=== PATIENT | female | born 1945 | race Caucasian/White ===

== ENCOUNTER 2016-11-20 19:38 | Inpatient (IN) | payer MEDICARE ==
[~2016-11-20] VITALS: Ht 162.6 cm; Wt 52.6 kg
[~2016-11-20 19:38] MED LIST: LAMO100 PO; PRIM50 PO; SERT-129 PO; SERT-132 PO; SIMV40TA PO
[2016-11-20 19:40] VITALS: BP 107/51; PULSE 74; RESP 14; TEMP 99.5; O2SAT 100
[2016-11-20] MEDS ORDERED: SODIUM CHLOR 0.9% 1000 ML INJ 1,000 ML IV SCH (20:43)
[2016-11-20] MEDS ORDERED: PANTOPRAZOLE INJ 80 MG in SODIUM CHLORIDE 0.9% INJ 100 ML IV SCH (20:45)
[2016-11-20] MEDS ORDERED: DENO60P SQ (20:45)
[2016-11-20] MEDS ORDERED: PANTOPRAZOLE INJ 80 MG in SODIUM CHLORIDE 0.9% INJ 35 ML IV ONE (20:45)
[2016-11-20] MEDS ORDERED: SODIUM CHLORIDE 0.9% FLUSH 10 ML FLUSH IVF PRN (20:45)
[2016-11-20] MEDS ORDERED: ONDANSETRON HCL 4 MG/2 ML VIAL IVP ONE (20:45)
[2016-11-20 20:53] VITALS: RESP 18
[2016-11-20 21:01] LABS: AUTOMATED NEUTROPHIL # 6.2 TH/MM3 (1.8-7.7); BASOPHIL % 0.6 % (0.0-2.0); EOSINOPHIL % 0.1 % (0.0-4.0); HEMATOCRIT 27.2 % (35.0-46.0); HEMO FLAGS DIFF FINAL; LYMPH % 8.3 % (9.0-44.0); LYMPHOCYTE # 0.6 TH/MM3 (1.0-4.8); MEAN CELL VOLUME 93.4 FL (80.0-100.0); MEAN CORPUSCULAR HEMOGLOBIN 31.5 PG (27.0-34.0); MEAN CORPUSCULAR HGB CONC 33.8 % (32.0-36.0); MONO % 6.6 % (0.0-8.0); NEUT % 84.4 % (16.0-70.0); PLATELET COUNT 214 TH/MM3 (150-450); RED BLOOD COUNT 2.91 MIL/MM3 (4.00-5.30); RED CELL DISTRIBUTION WIDTH 14.3 % (11.6-17.2); WHITE BLOOD COUNT 7.3 TH/MM3 (4.0-11.0)
[2016-11-20 21:11] LABS: INTERNATIONAL NORMALIZED RATIO 1.1 RATIO; PROTHROMBIN TIME - PATIENT 12.4 SEC (9.8-11.6)
[2016-11-20 21:17] LABS: ANION GAP 7 MEQ/L (5-15); AST (GOT) 24 U/L (15-37); BICARBONATE 31.4 MEQ/L (21.0-32.0); BLOOD UREA NITROGEN 45 MG/DL (7-18); CHLORIDE 103 MEQ/L (98-107); GLOMERULAR FILTRATION RATE 83 ML/MIN (>89); POTASSIUM 4.5 MEQ/L (3.5-5.1); SODIUM (NA) 141 MEQ/L (136-145)
[2016-11-20 21:22] LABS: ALKALINE PHOSPHATASE 100 U/L (45-117); ALT (GPT) 23 U/L (10-53); TOTAL BILIRUBIN ADULT 0.2 MG/DL (0.2-1.0)
[2016-11-20] MEDS ORDERED: OCTREOTIDE INJ 50 MCG/ML AMP IV PUSH STA (21:29)
[2016-11-20] MEDS ORDERED: SODIUM CHLOR 0.9% 250 ML INJ 250 ML IV ONE (21:30)
[2016-11-20] MEDS ORDERED: OCTREOTIDE INJ 500 MCG in SODIUM CHLORID 0.9% 500 ML INJ 500 ML IV ONE (21:30)
--- NOTE | 2016-11-20 21:45 | RADRPT ---
EXAM DATE/TIME: 11/20/2016 21:05 [facility] COMPARISON: No previous studies available for comparison. INDICATIONS : Patient complains of vomiting and weakness. MEDICAL HISTORY : None. SURGICAL HISTORY : None. ENCOUNTER: Initial ACUITY: 1 day PAIN SCORE: 0/10 LOCATION: chest FINDINGS: The cardiac silhouette is normal in transverse diameter. The lungs are free of acute parenchymal opac ity. No effusions are identified. There is prominence of the aortic knob is with calcification charac teristic of atherosclerotic vascular disease. CONCLUSION: 1. No acute cardiopulmonary disease. Chris Flores MD on November 20, 2016 at 21:44 Board Certified Radiologist. This report was verified electronically.
[2016-11-20 22:03] VITALS: BP 100/64; PULSE 68; RESP 18; O2SAT 99
[2016-11-20] MEDS ORDERED: IOHEXOL 350 MG/ML 10 ML VIAL (for RAD DIAG) IV ONE (22:22)
--- NOTE | 2016-11-20 22:35 | RADRPT ---
EXAM DATE/TIME: 11/20/2016 22:04 [facility] COMPARISON: CT ABDOMEN & PELVIS W CONTRAST, June 17, 2010, 17:09. INDICATIONS : Abdomen pain with hematemesis. IV CONTRAST: 75 cc Omnipaque 350 (iohexol) IV ORAL CONTRAST: No oral contrast ingested. RADIATION DOSE: 4.96 CTDIvol (mGy) MEDICAL HISTORY : Colitis SURGICAL HISTORY : Tubal ligation. ENCOUNTER: Initial ACUITY: 1 day PAIN SCALE: 5/10 LOCATION: Bilateral abdomen TECHNIQUE: Volumetric scanning of the abdomen and pelvis was performed. Using automated exposure control and ad justment of the mA and/or kV according to patient size, radiation dose was kept as low as reasonably achievable to obtain optimal diagnostic quality images. FINDINGS: Examination of the lung bases demonstrates no abnormality. No pleural fluid is identified. No pulmona ry nodules are present. The liver and spleen are free of focal defects. The gallbladder and pancreas demonstrate no abnormality. The adrenal glands are normal. The kidneys demonstrate no evidence of jamari id renal mass or hydronephrosis. No free fluid or abdominal masses are identified. No para-aortic lisa nopathy is seen. Examination of the pelvis demonstrates no evidence of free fluid or pelvic mass. No abnormally enlarg ed inguinal or retroperitoneal lymph nodes are present. The bladder is unremarkable. There is diverti culosis without evidence of diverticulitis. CONCLUSION: 1. No evidence of acute abdominal or pelvic process. No masses are identified. 2. Diverticulosis without evidence of diverticulitis. Chris Flores MD on November 20, 2016 at 22:27 Board Certified Radiologist. This report was verified electronically.
--- NOTE | 2016-11-20 23:18 | HHI.HP ---
HPI Service Critical Care Medicine Primary Care Physician Isela Patel MD Admission Diagnosis GI bleed Diagnosis: Travel History International Travel<30 Days: No Contact w/Intl Traveler <30 Da: No Traveled to Known Affected Are: No History of Present Illness 71 year old very pleasant female who comes in due to nausea, vomiting, and passing bright red blood per rectum. She says that this afternoon she vomited several times and there was blood in the vomit. She then had two episodes of diarrhea at home. The first was black and tarry, the second was blood clots. She had another bloody bowel movement in the waiting room. She says she has some pain to her abdomen, in the epigastric area as well as the right lower quadrant. She has been taking a lot of Ibuprofen lately for toothaches. She has no history of liver disease. Review of Systems Constitutional: COMPLAINS OF: Fatigue, Dizziness, DENIES: Diaphoretic episodes , Fever, Weight gain, Weight loss, Chills, Change in appetite, Night Sweats Endocrine: DENIES: Abnorml menstrual pattern, Heat/cold intolerance, Polydipsia , Polyuria, Polyphagia Eyes: DENIES: Blurred vision, Diplopia, Eye inflammation, Eye pain, Vision loss , Photosensitivity, Double Vision Ears, nose, mouth, throat: DENIES: Tinnitus, Hearing loss, Vertigo, Nasal discharge, Oral lesions, Throat pain, Hoarseness, Ear Pain, Running Nose, Epistaxis, Sinus Pain, Toothache, Odynophagia Respiratory: DENIES: Apneas, Cough, Snoring, Wheezing, Hemoptysis, Sputum production, Shortness of breath Cardiovascular: DENIES: Chest pain, Palpitations, Syncope, Dyspnea on Exertion , PND, Lower Extremity Edema, Orthopnea, Claudication Gastrointestinal: COMPLAINS OF: Abdominal pain, Black stools, Bloody stools, Nausea, Vomiting, DENIES: Constipation, Diarrhea, Difficulty Swallowing, Anorexia Genitourinary: DENIES: Abnormal vaginal bleeding, Dysmenorrhea, Dyspareunia, Sexual dysfunction, Urinary frequency, Urinary incontinence, Urgency, Hematuria , Dysuria, Nocturia, Vaginal discharge Musculoskeletal: DENIES: Joint pain, Muscle aches, Stiffness, Joint Swelling, Back pain, Neck pain Integumentary: DENIES: Abnormal pigmentation, Pruritus, Rash, Nail changes, Breast masses, Breast skin changes, Nipple discharge Hematologic/lymphatic: DENIES: Bruising, Lymphadenopathy Immunologic/allergic: DENIES: Eczema, Urticaria Neurologic: DENIES: Abnormal gait, Headache, Localized weakness, Paresthesias, Seizures, Speech Problems, Tremor, Poor Balance Psychiatric: DENIES: Anxiety, Confusion, Mood changes, Depression, Hallucinations, Agitation, Suicidal Ideation, Homicidal Ideation, Delusions Past Family Social History Allergies: Coded Allergies: Tegretol (Verified Allergy, Severe, 11/20/16) Adhesives (Verified Allergy, Mild, 11/20/16) Past Medical History Anxiety Colitis Seizure disorder Past Surgical History Tubal Ligation Right temporal lobectomy for seizure disorder Reported Medications Reported Meds & Active Scripts Active Sertraline (Sertraline HCl) 100 Mg Tab 100 Mg PO DAILY Sertraline (Sertraline HCl) 50 Mg Tab 50 Mg PO DAILY Reported Prolia Inj (Denosumab) 60 Mg/Ml Inj 60 Mg SQ Q180D Mysoline (Primidone) 50 Mg Tab 250 Mg PO TID Lamictal (Lamotrigine) 100 Mg Tab 100 Mg PO TID Active Ordered Medications Current Medications Medications (Trade) Dose Ordered Sig/Willie Route PRN Reason Start Time Stop Time Status Last Admin Dose Admin Sodium Chloride (NS 250 ml Inj) 250 ml @ 15 mls/hr ONCE ONCE IV 11/20/16 21:30 11/21/16 14:09 11/21/16 00:38 Lamotrigine (LaMICtal) 100 mg TID PO 11/21/16 09:00 Primidone (Mysoline) 250 mg TID PO 11/21/16 09:00 Sertraline HCl (Zoloft) 50 mg DAILY PO 11/21/16 09:00 Sertraline HCl 100 mg 100 mg DAILY PO 11/21/16 09:00 Sodium Chloride (NS 1000 ml Inj) 1,000 ml @ 124 mls/hr Q8H4M IV 11/20/16 23:31 11/21/16 00:38 Sodium Chloride (NS Flush) 2 ml UNSCH PRN .XX FLUSH AFTER USING IV ACCESS 11/20/16 23:45 Sodium Chloride (NS Flush) 2 ml BID .XX 11/21/16 09:00 Acetaminophen (Tylenol) 650 mg Q6H PRN PO PAIN 1-5 AND/OR FEVER >101F 11/20/16 23:45 Morphine Sulfate (Morphine Inj) 2 mg Q2H PRN IV PAIN SCALE 6 TO 10 11/20/16 23:45 Pantoprazole Sodium (Protonix Inj) 40 mg Q12H IV 11/21/16 00:00 11/21/16 00:39 Ondansetron HCl (Zofran Inj) 4 mg Q6H PRN IV NAUSEA OR VOMITING 11/20/16 23:45 Metoclopramide HCl (Reglan Inj) 10 mg Q6H PRN IV NAUSEA OR VOMITING 11/20/16 23:45 Temazepam (Restoril) 15 mg HS PRN PO INSOMNIA 11/20/16 23:45 Miscellaneous Information 1 Q361D XX 11/20/16 23:45 Chlorhexidine Gluconate (Chlorhexidine 2% Cloth) 3 pack Taper DAILY@04 TOP 11/21/16 04:00 11/17/17 03:59 Chlorhexidine Gluconate (Chlorhexidine 2% Cloth) 3 pack UNSCH PRN TOP HYGIENIC CARE 11/20/16 23:45 Family History Noncontributory Social History Negative 3 Physical Exam Vital Signs Vital Signs Date Time Temp Pulse Resp B/P Pulse Ox O2 Delivery O2 Flow Rate FiO2 11/20/16 22:03 68 18 100/64 99 Room Air 11/20/16 20:53 18 11/20/16 19:40 99.5 74 14 107/51 100 Room Air Physical Exam GENERAL: Well-nourished, well-developed patient. Repeat pleasant elderly woman SKIN: Warm and dry. HEAD: Normocephalic. EYES: No scleral icterus. No injection or drainage. NECK: Supple, trachea midline. No JVD or lymphadenopathy. CARDIOVASCULAR: Regular rate and rhythm without murmurs, gallops, or rubs. RESPIRATORY: Breath sounds equal bilaterally. No accessory muscle use. GASTROINTESTINAL: Abdomen soft, non-tender, nondistended. MUSCULOSKELETAL: No cyanosis, or edema. BACK: Nontender without obvious deformity. No CVA tenderness. EXTREMITIES: No clubbing cyanosis or edema Laboratory Laboratory Tests Test 11/20/16 11/20/16 11/20/16 20:45 21:29 22:41 White Blood Count 7.3 Red Blood Count 2.91 Hemoglobin 9.2 Hematocrit 27.2 Mean Corpuscular Volume 93.4 Mean Corpuscular Hemoglobin 31.5 Mean Corpuscular Hemoglobin 33.8 Concent Red Cell Distribution Width 14.3 Platelet Count 214 Mean Platelet Volume 8.9 Neutrophils (%) (Auto) 84.4 Lymphocytes (%) (Auto) 8.3 Monocytes (%) (Auto) 6.6 Eosinophils (%) (Auto) 0.1 Basophils (%) (Auto) 0.6 Neutrophils # (Auto) 6.2 Lymphocytes # (Auto) 0.6 Monocytes # (Auto) 0.5 Eosinophils # (Auto) 0.0 Basophils # (Auto) 0.0 CBC Comment DIFF FINAL Differential Comment Prothrombin Time 12.4 Prothromb Time International 1.1 Ratio Activated Partial 24.0 Thromboplast Time Sodium Level 141 Potassium Level 4.5 Chloride Level 103 Carbon Dioxide Level 31.4 Anion Gap 7 Blood Urea Nitrogen 45 Creatinine 0.70 Estimat Glomerular Filtration 83 Rate Random Glucose 112 Calcium Level 7.9 Total Bilirubin 0.2 Aspartate Amino Transf 24 (AST/SGOT) Alanine Aminotransferase 23 (ALT/SGPT) Alkaline Phosphatase 100 Troponin I LESS THAN 0.02 Total Protein 5.7 Albumin 3.4 Blood Type O POSITIVE O POSITIVE Antibody Screen NEGATIVE Blood Bank Comment Crossmatch Leukocyte-Reduced Red Blood Cells Result Diagram: 11/20/16204411/20/162044 Assessment and Plan Assessment and Plan GI bleed - No history of liver disease - Most probably peptic ulcer due to NSAIDs overuse - IV Protonix every 12 - GI consult - Series of H&H Seizure disorder - Lamictal - Primidone Anemia - Due to above - Series of H&H - Transfuse for hemoglobin less than 7 Anxiety - Zoloft DVT GI prophylaxis - No pharmacological DVT prophylaxis due to active GI bleed - Teds SCDs - Protonix IV twice a day Critical Care: The total critical care time was 35 minutes. Time to perform other separately billable procedures was not included in the critical care time. Jasmeet Preston MD November 20, 2016 23:18
--- NOTE | 2016-11-20 23:40 | PD ---
HPI Chief Complaint: GI Complaint Time Seen by Provider: 20:43 Travel History International Travel<30 days: No Contact w/Intl Traveler<30days: No Traveled to known affect area: No History of Present Illness HPI Patient is a 71 year old female who comes in due to nausea, vomiting, and GI bleed. She says that this afternoon she vomited several times and there was blood in the vomit. She then had two episodes of diarrhea at home. The first was black and tarry, the second was blood clots. She had another bloody bowel movement in the waiting room. She says she has some pain to her abdomen, in the epigastric area as well as the RLQ. She denies dysuria or chest pain or SOB. She has been taking a lot of Ibuprofen lately for toothaches. PFSH Past Medical History Anxiety: Yes Gastrointestinal Disorders: Yes (COLITIS) Neurologic: Yes Seizures: Yes Tetanus Vaccination: Unknown Menopausal: Yes Tubal Ligation: Yes Past Surgical History Neurologic Surgery: Yes (RIGHT TEMPORAL LOBECTOMY FOR SEIZURES) Social History Alcohol Use: No Tobacco Use: No Substance Use: No Allergies-Medications (Allergen,Severity, Reaction): Coded Allergies: Tegretol (Verified Allergy, Severe, 11/20/16) Adhesives (Verified Allergy, Mild, 11/20/16) Reported Meds & Prescriptions Reported Meds & Active Scripts Active Sertraline (Sertraline HCl) 100 Mg Tab 100 Mg PO DAILY Sertraline (Sertraline HCl) 50 Mg Tab 50 Mg PO DAILY Reported Prolia Inj (Denosumab) 60 Mg/Ml Inj 60 Mg SQ Q180D Mysoline (Primidone) 50 Mg Tab 250 Mg PO TID Lamictal (Lamotrigine) 100 Mg Tab 100 Mg PO TID Review of Systems Except as stated in HPI: all other systems reviewed are Neg General / Constitutional: No: Fever, Chills Eyes: No: Blurred Vision HENT: No: Headaches Cardiovascular: No: Chest Pain or Discomfort Respiratory: No: Shortness of Breath Gastrointestinal: Positive: Nausea, Vomiting, Abdominal Pain, Hematemesis, Hematochezia Genitourinary: No: Dysuria Skin: No Rash, No Change in Pigmentation Neurologic: Positive: Weakness Physical Exam Narrative GENERAL: Awake and alert, in no acute distress. SKIN: Focused skin assessment warm/dry. HEAD: Atraumatic. Normocephalic. EYES: Pupils equal and round. No scleral icterus. No conjunctival pallor. ENT: Mucous membranes pink and moist. NECK: Trachea midline. No JVD. CARDIOVASCULAR: Regular rate and rhythm. No murmur appreciated. RESPIRATORY: No accessory muscle use. Clear to auscultation. Breath sounds equal bilaterally. GASTROINTESTINAL: Abdomen soft, nondistended. Mild tenderness to RLQ. No rebound guarding. MUSCULOSKELETAL: No obvious deformities. No clubbing. No cyanosis. No edema. NEUROLOGICAL: Awake and alert. No obvious cranial nerve deficits. Motor grossly within normal limits. Normal speech. PSYCHIATRIC: Appropriate mood and affect; insight and judgment normal. Data Data Last Documented VS Vital Signs Date Time Temp Pulse Resp B/P Pulse Ox O2 Delivery O2 Flow Rate FiO2 11/20/16 22:03 68 18 100/64 99 Room Air 11/20/16 19:40 99.5 Orders Complete Blood Count With Diff (11/20/16 20:43) Comprehensive Metabolic Panel (11/20/16 20:43) Prothrombin Time / Inr (Pt) (11/20/16 20:43) Act Partial Throm Time (Ptt) (11/20/16 20:43) Urinalysis - C+S If Indicated (11/20/16 20:43) Ua Includes Microscopic (11/20/16 20:43) Type And Screen (11/20/16 20:43) Ecg Monitoring (11/20/16 20:43) Iv Access Insert/Monitor (11/20/16 20:43) Oximetry (11/20/16 20:43) Ondansetron Inj (Zofran Inj) (11/20/16 20:45) Sodium Chlor 0.9% 1000 Ml Inj (Ns 1000 M (11/20/16 20:43) Sodium Chloride 0.9% Flush (Ns Flush) (11/20/16 20:45) Pantoprazole Inj (Protonix Inj) (11/20/16 20:45) Pantoprazole Inj (Protonix Inj) (11/20/16 20:45) Troponin I (11/20/16 20:43) Ct Abd/Pel W Iv Contrast(Rout) (11/20/16 ) Electrocardiogram (11/20/16 ) Chest, Single Ap (11/20/16 ) Red Blood Cells (Rbc) (11/20/16 21:29) Blood Product Administration .UPON TRANSFUSION (11/20/16 21:29) Sodium Chlor 0.9% 250 Ml Inj (Ns 250 Ml (11/20/16 21:30) Octreotide Inj (Sandostatin Inj) (11/20/16 21:29) Octreotide Inj (Sandostatin Inj) (11/20/16 21:30) Iohexol 350 Inj (Omnipaque 350 Inj) (11/20/16 22:22) Admit Order (Ed Use Only) (11/20/16 ) Labs Laboratory Tests Test 11/20/16 11/20/16 20:45 21:29 White Blood Count 7.3 TH/MM3 Red Blood Count 2.91 MIL/MM3 Hemoglobin 9.2 GM/DL Hematocrit 27.2 % Mean Corpuscular Volume 93.4 FL Mean Corpuscular Hemoglobin 31.5 PG Mean Corpuscular Hemoglobin 33.8 % Concent Red Cell Distribution Width 14.3 % Platelet Count 214 TH/MM3 Mean Platelet Volume 8.9 FL Neutrophils (%) (Auto) 84.4 % Lymphocytes (%) (Auto) 8.3 % Monocytes (%) (Auto) 6.6 % Eosinophils (%) (Auto) 0.1 % Basophils (%) (Auto) 0.6 % Neutrophils # (Auto) 6.2 TH/MM3 Lymphocytes # (Auto) 0.6 TH/MM3 Monocytes # (Auto) 0.5 TH/MM3 Eosinophils # (Auto) 0.0 TH/MM3 Basophils # (Auto) 0.0 TH/MM3 CBC Comment DIFF FINAL Differential Comment Prothrombin Time 12.4 SEC Prothromb Time International 1.1 RATIO Ratio Activated Partial 24.0 SEC Thromboplast Time Sodium Level 141 MEQ/L Potassium Level 4.5 MEQ/L Chloride Level 103 MEQ/L Carbon Dioxide Level 31.4 MEQ/L Anion Gap 7 MEQ/L Blood Urea Nitrogen 45 MG/DL Creatinine 0.70 MG/DL Estimat Glomerular Filtration 83 ML/MIN Rate Random Glucose 112 MG/DL Calcium Level 7.9 MG/DL Total Bilirubin 0.2 MG/DL Aspartate Amino Transf 24 U/L (AST/SGOT) Alanine Aminotransferase 23 U/L (ALT/SGPT) Alkaline Phosphatase 100 U/L Troponin I LESS THAN 0.02 NG/ML Total Protein 5.7 GM/DL Albumin 3.4 GM/DL Blood Type O POSITIVE Antibody Screen NEGATIVE Blood Bank Comment Crossmatch Leukocyte-Reduced Red Blood Cells MDM Medical Decision Making Medical Screen Exam Complete: Yes Emergency Medical Condition: Yes Differential Diagnosis PUD vs diverticulosis vs diverticulitis vs AVM Narrative Course Patient is a 71 year old female who comes in complaining of nausea with vomiting blood and bloody stools. Exam shows BRBPR. IV established, labs sent, patient connected to the it technical architect. Given IVF and Zofran. Started on protonix drip. Patient went to the bathroom and had a syncopal episode after another blood bowel movement. Her daughter caught her before she hit the floor. She was returned to bed and returned to her baseline. Given 2 units of blood, given Octreotide. GI consulted, will perform scope tomorrow morning. Patient admitted to the ICU. Critical Care Narrative Aggregate critical care time was 35 minutes. Time to perform other separately billable procedures was not included in the critical care time. My time did not include minutes spent treating any other patients simultaneously or on activities that did not directly contribute to the patient's treatment. The services I provided to this patient were to treat and/or prevent clinically significant deterioration that could result in: Serious illness or I provided critical care services requiring my management, as noted below: Chart data review, documentation time, medication orders and management, vital sign assessments/reviewing monitor data, ordering and reviewing lab tests, ordering and interpreting/reviewing x-rays and diagnostic studies, care of the patient and discussion of the patient with the admitting physicians. HemaPrompt Point of Care Internal Pos. & Neg. Controls: Passed Fecal Specimen Occult Blood: Positive Diagnosis Primary Impression: GI bleed Qualified Code: K92.2 - Gastrointestinal hemorrhage, unspecified gastrointestinal hemorrhage type Admitting Information Admitting Physician Requests: Admit Moira Pierre MD November 20, 2016 23:40
[2016-11-20] MEDS ORDERED: ACETAMINOPHEN 325 MG TAB PO PRN (23:45)
[2016-11-20] MEDS ORDERED: METOCLOPRAMIDE HCL 10 MG/2 ML VIAL IV PRN (23:45)
[2016-11-20] MEDS ORDERED: MISCELLANEOUS NURSING INFORMATION XX SCH (23:45)
[2016-11-20] MEDS ORDERED: RESP: ALBUTEROL 2.5 MG/IPRATROPIUM 0.5 MG NEB (PRN) INH (23:45)
[2016-11-20] MEDS ORDERED: CHLORHEXIDINE GLUCONATE 2 % 1 PACK (2 CLOTHS) TOP PRN (23:45)
[2016-11-20] MEDS ORDERED: TEMAZEPAM 15 MG CAP PO PRN (23:45)
[2016-11-20] MEDS ORDERED: SODIUM CHLORIDE 0.9% FLUSH 10 ML FLUSH PRN (23:45)
[2016-11-20] MEDS ORDERED: ONDANSETRON HCL 4 MG/2 ML VIAL IV PRN (23:45)
[2016-11-20 23:47] VITALS: BP 129/69; PULSE 76; RESP 16; O2SAT 95
[2016-11-21] VITALS (27 sets, daily range): BP systolic 113–167; BP diastolic 59–90; PULSE 62–123; RESP 14–24; TEMP 97.8–99.3; O2SAT 92–100
[2016-11-21] MEDS: SODIUM CHLOR 0.9% 1000 ML INJ 1,000 ML IV SCH ×3 (00:38→14:44)
[2016-11-21] MEDS: PANTOPRAZOLE SODIUM 40 MG VIAL IV SCH ×2 (00:39→11:47)
[2016-11-21 00:49] LABS: BACTERIA, URINE RARE /hpf; BLOOD, URINE LARGE (NEG); GLUCOSE,URINE NEG (NEG); KETONE, URINE TRACE mg/dL (NEG); MUCUS URINE FEW /lpf (OCC); NITRITE,URINE NEG (NEG); SQUAMOUS EPITHELIAL CELL URINE 4 /hpf (0-5); TRANSITIONAL EPI CELLS, URINE <1 /hpf; URINE COLOR YELLOW (YELLW/STRAW)
[2016-11-21 00:50] LABS: COMMENT (UR) CULT NOT INDICATED; CULTURE IF INDICATED CULT NOT INDICATED
[2016-11-21 01:17] LABS: HEMATOCRIT 25.7 % (35.0-46.0); REVIEW FLAG FINAL
[2016-11-21] MEDS: CHLORHEXIDINE GLUCONATE 2 % 1 PACK (2 CLOTHS) TOP SCH (05:11)
[2016-11-21] MEDS: MORPHINE SULFATE 4 MG/ML INJ IV PRN ×2 (05:23→14:45)
--- NOTE | 2016-11-21 07:42 | PD.CONS ---
HPI History of Present Illness This is a 71 year old female who presented to the ER with hematemesis and melanotic stool. She has a history of collagenous colitis, but states she has not had any issues with this for quite some time. She last had a colonoscopy in 2011, but does not recall who did this or what they found. She is unsure if she had an endoscopy at that time. She denies any history of peptic ulcer disease. She recently had dental work done and has been taking 2-4 ibuprofen per day. She reports that she was in her normal state of health up until yesterday afternoon. She was feeling tired and went to take a nap. She woke up around 3pm with nausea and vomiting, consisting of reddish colored emesis. She denies any abdominal pain, but states she was very diaphoretic and had the urge to move her bowels. She had a black tarry stool that filled the toilet and when she flushed this, it seemed to have some red blood clots mixed within it. She reports that she was very weak at the time and found herself on the floor, but she is unsure if she actually passed out or was just tired. She denies any heartburn, reflux, abdominal pain, constipation, or diarrhea. She has been more tired than usual for a few days and also reports that she has had a decreased appetite, but denies any obvious weight loss. PFSH Past Medical History Osteoarthritis Irritable bowel syndrome Anxiety Collagenous Colitis Seizure disorder Past Surgical History Tubal ligation Right temporal lobectomy for seizure disorder Colonoscopy Coded Allergies: Tegretol (Verified Allergy, Severe, 11/20/16) Adhesives (Verified Allergy, Mild, 11/20/16) Medications Allergies Coded Allergies Type Severity Reaction Last Updated Verified Tegretol Allergy Severe 11/20/16 Yes Adhesives Allergy Mild 11/20/16 Yes Active Scripts Medications Dose Route/Sig Days Date Category Prolia Inj (Denosumab) 60 Mg/Ml Inj 60 Mg SQ Q180D 11/20/16 Reported Sertraline (Sertraline HCl) 100 Mg Tab 100 Mg PO DAILY 06/07/16 Rx Sertraline (Sertraline HCl) 50 Mg Tab 50 Mg PO DAILY 06/07/16 Rx Mysoline (Primidone) 50 Mg Tab 250 Mg PO TID 06/05/16 Reported Lamictal (Lamotrigine) 100 Mg Tab 100 Mg PO TID 06/05/16 Reported Family History Denies any family hx of esophageal, gastric, colorectal cancer. No family hx of IBD Social History No use of tobacco, etoh, or illicit drug use. Review of Systems Constitutional: COMPLAINS OF: Diaphoretic episodes, Fatigue, DENIES: Weight loss Respiratory: DENIES: Cough Cardiovascular: DENIES: Chest pain Gastrointestinal: COMPLAINS OF: Black stools (with red blood clots), Nausea, Vomiting, Hematemesis, DENIES: Abdominal pain Musculoskeletal: COMPLAINS OF: Joint pain Integumentary: DENIES: Abnormal pigmentation, Rash Hematologic/lymphatic: DENIES: Bruising Neurologic: DENIES: Headache Psychiatric: DENIES: Confusion GI Exam Vitals I&O Vital Signs Date Time Temp Pulse Resp B/P Pulse Ox O2 Delivery O2 Flow Rate FiO2 11/21/16 07:00 98.9 72 20 135/64 94 11/21/16 07:00 72 11/21/16 06:00 70 11/21/16 05:30 75 11/21/16 04:58 99.3 64 20 151/66 96 11/21/16 03:33 82 16 139/65 95 11/21/16 02:45 98.8 81 18 143/65 96 Room Air 11/21/16 02:35 98.8 79 16 113/59 95 Room Air 11/21/16 00:45 98.6 80 18 128/60 98 Room Air 11/21/16 00:15 98.8 82 18 136/62 98 Room Air 11/21/16 00:00 99.3 84 16 124/78 98 Room Air 11/20/16 23:47 76 16 129/69 95 Room Air 11/20/16 22:03 68 18 100/64 99 Room Air 11/20/16 20:53 18 11/20/16 19:40 99.5 74 14 107/51 100 Room Air I/O 11/20/16 11/20/16 11/20/16 11/21/16 11/21/16 11/21/16 07:00 15:00 23:00 07:00 15:00 23:00 Intake Total 1906 ml Balance 1906 ml Intake Oral 0 ml IV Total 1306 ml Packed Cells 250 ml Other 350 ml # Voids 1 # Bowel Movements 1 Imaging Last Impressions Chest X-Ray 11/20/16 0000 Signed Impressions: Service Date/Time: Sunday, November 20, 2016 21:05 - CONCLUSION: 1. No acute cardiopulmonary disease. Chris Flores MD Abdomen/Pelvis CT 11/20/16 0000 Signed Impressions: Service Date/Time: Sunday, November 20, 2016 22:04 - CONCLUSION: 1. No evidence of acute abdominal or pelvic process. No masses are identified. 2. Diverticulosis without evidence of diverticulitis. Chris Flores MD Laboratory Test 11/20/16 11/20/16 11/20/16 11/21/16 20:45 21:29 22:41 00:35 White Blood Count 7.3 TH/MM3 Red Blood Count 2.91 MIL/MM3 Hemoglobin 9.2 GM/DL Hematocrit 27.2 % Mean Corpuscular Volume 93.4 FL Mean Corpuscular Hemoglobin 31.5 PG Mean Corpuscular Hemoglobin 33.8 % Concent Red Cell Distribution Width 14.3 % Platelet Count 214 TH/MM3 Mean Platelet Volume 8.9 FL Neutrophils (%) (Auto) 84.4 % Lymphocytes (%) (Auto) 8.3 % Monocytes (%) (Auto) 6.6 % Eosinophils (%) (Auto) 0.1 % Basophils (%) (Auto) 0.6 % Neutrophils # (Auto) 6.2 TH/MM3 Lymphocytes # (Auto) 0.6 TH/MM3 Monocytes # (Auto) 0.5 TH/MM3 Eosinophils # (Auto) 0.0 TH/MM3 Basophils # (Auto) 0.0 TH/MM3 CBC Comment DIFF FINAL Differential Comment Prothrombin Time 12.4 SEC Prothromb Time International 1.1 RATIO Ratio Activated Partial 24.0 SEC Thromboplast Time Sodium Level 141 MEQ/L Potassium Level 4.5 MEQ/L Chloride Level 103 MEQ/L Carbon Dioxide Level 31.4 MEQ/L Anion Gap 7 MEQ/L Blood Urea Nitrogen 45 MG/DL Creatinine 0.70 MG/DL Estimat Glomerular Filtration 83 ML/MIN Rate Random Glucose 112 MG/DL Calcium Level 7.9 MG/DL Total Bilirubin 0.2 MG/DL Aspartate Amino Transf 24 U/L (AST/SGOT) Alanine Aminotransferase 23 U/L (ALT/SGPT) Alkaline Phosphatase 100 U/L Troponin I LESS THAN 0.02 NG/ML Total Protein 5.7 GM/DL Albumin 3.4 GM/DL Blood Type O POSITIVE O POSITIVE Antibody Screen NEGATIVE Blood Bank Comment Crossmatch Leukocyte-Reduced Red Blood Cells Urine Color YELLOW Urine Turbidity HAZY Urine pH 6.0 Urine Specific [place] 1.047 Urine Protein TRACE mg/dL Urine Glucose (UA) NEG mg/dL Urine Ketones TRACE mg/dL Urine Occult Blood LARGE Urine Nitrite NEG Urine Bilirubin NEG Urine Urobilinogen LESS THAN 2.0 MG/DL Urine Leukocyte Esterase TRACE Urine RBC 4 /hpf Urine WBC 2 /hpf Urine Squamous Epithelial 4 /hpf Cells Urine Transitional Epithelial <1 /hpf Cells Urine Bacteria RARE /hpf Urine Mucus FEW /lpf Microscopic Urinalysis Comment CULT NOT INDICATED Test 11/21/16 01:00 Hemoglobin 8.6 GM/DL Hematocrit 25.7 % Physical Examination HEENT: Normocephalic; atraumatic; no jaundice. CHEST: CTA CARDIAC: RRR ABDOMEN: Soft, nondistended, nontender; no hepatosplenomegaly; bowel sounds are present in all four quadrants. EXTREMITIES: No clubbing, cyanosis, or edema. SKIN: Normal; no rash; no jaundice. 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 Assessment and Plan Plan ASSESSMENT: - Upper GI Bleeding with hematemesis and melanotic stool. No hx PUD. (+) NSAID use- 2-4 ibuprofen per day. Woke up yesterday afternoon diaphoretic and had nausea/vomiting with reddish colored emesis and started passing black tarry stool- with red blood clots when she flushed the toilet. No hx of GI bleeding. Does have a hx of collagenous colitis, but has not had any issues with this for quite some time. Last colonoscopy was 2011, unsure who did this or what was found. No outpt records from our clinic. Protonix. - Anemia, secondary to acute blood loss. 8.6/25.7. - Hx collagenous colitis. No issues with this for several years. No diarrhea. Last colonoscopy 2011. - Sz D/O, per primary PLAN: - Plan for egd today - Obtain consents - NPO - Protonix 40mg IV BID - Monitor HH - Transfuse as necessary - Supportive care - Further recommendations to follow based on results of above - PT seen and examined by Dr. Ricardo and myself and this note is written on his behalf Savanna Cobb November 21, 2016 07:42
--- NOTE | 2016-11-21 08:43 | HHI.CCPN ---
Subjective Remarks/Hospital Course 71 year old very pleasant female who comes in due to nausea, vomiting, and passing bright red blood per rectum. She says that this afternoon she vomited several times and there was blood in the vomit. She then had two episodes of diarrhea at home. The first was black and tarry, the second was blood clots. She had another bloody bowel movement in the waiting room. She says she has some pain to her abdomen, in the epigastric area as well as the right lower quadrant. She has been taking a lot of Ibuprofen lately for toothaches. She has no history of liver disease. Subjective 11/21: No more blood per rectum since admission. Hemodynamically stable. Afebrile. No abdominal pain. Received morphine earlier tonight. Objective Vital Signs Date Time Temp Pulse Resp B/P Pulse Ox O2 Delivery O2 Flow Rate FiO2 11/21/16 07:00 98.9 72 20 135/64 94 11/21/16 02:45 Room Air Result Diagram: 11/21/16 0100 11/20/162044 Imaging Last Impressions Chest X-Ray 11/20/16 0000 Signed Impressions: Service Date/Time: Sunday, November 20, 2016 21:05 - CONCLUSION: 1. No acute cardiopulmonary disease. Chris Flores MD Abdomen/Pelvis CT 11/20/16 0000 Signed Impressions: Service Date/Time: Sunday, November 20, 2016 22:04 - CONCLUSION: 1. No evidence of acute abdominal or pelvic process. No masses are identified. 2. Diverticulosis without evidence of diverticulitis. Chris Flores MD Objective Remarks GENERAL: 71-year-old female, critically ill currently resting in bed in no acute distress SKIN: Warm and dry. No rash HEAD: Status post right temporal craniectomy 1998 EYES: No scleral icterus. No injection or drainage. NECK: Supple, trachea midline. No JVD or lymphadenopathy. CARDIOVASCULAR: RRR. S1, S2 without murmur RESPIRATORY: Breath sounds equal bilaterally. No accessory muscle use. GASTROINTESTINAL: Abdomen soft, non-tender, nondistended. Hypoactive bowel sounds are appreciated MUSCULOSKELETAL: No significant peripheral edema. BACK: Nontender without obvious deformity. No CVA tenderness. NEURO: Cranial nerves II through XII grossly intact. Strength is equal and symmetric. Normal sensation. A/P Assessment and Plan Neuro/Psych: Seizure disorder NOS History of right temporal lobectomy 1998 Anxiety disorder NOS Continue Lamictal 100 mg by mouth 3 times a day and Mysoline 50 mg by mouth 3 times a day for seizure disorder Continue sertraline 150 mg by mouth daily for depression/anxiety Morphine for pain management Avoid NSAIDs Avoid Ultram with seizure disorder Seizure precautions CV: History dyslipidemia Patient is currently hemodynamically stable not requiring antihypertensive and or vasopressors Currently on normal saline at 124 cc an hour Currently not on any lipid-lowering agents Resp: Nasal cannula to maintain saturations greater than equal to 92% Incentive spirometry while awake GI: Likely upper GI bleed with NSAID use History collagenous colitis History of IBS Currently Protonix 40 mg IV twice a day 4 EGD now : Soto if indicated for accurate I's and O's in a critically ill patient Endo: Sliding-scale insulin if indicated Renal: Prerenal azotemia Elevated BUN likely secondary to upper GI bleed. Heme: Acute blood loss anemia Serial hemoglobins. Every 6 hours Transfuse as clinically indicated ID: Monitor for infection FEN: Replace electrolytes as clinically indicated MSK: Osteoporosis Holding polia 60 mg IM every 180 days Access - Utilize peripheral IV. Central line if indicated Prophylaxis - GI - Protonix - DVT - SCD/pharmacological prophylaxis contraindicated with bleeding Critical Care: The total critical care time was 35 minutes. Time to perform other separately billable procedures was not included in the critical care time. GI ble ed - No history of liver disease - Most probably peptic ulcer due to NSAIDs overuse - IV Protonix every 12 - GI consult - Series of H&H Seizure disorder - Lamictal - Primidone Anemia - Due to above - Series of H&H - Transfuse for hemoglobin less than 7 Anxiety - Zoloft DVT GI prophylaxis - No pharmacological DVT prophylaxis due to active GI bleed - Teds SCDs - Protonix IV twice a day Critical Care: The total critical care time was 35 minutes. Time to perform other separately billable procedures was not included in the critical care time. Theodore Lloyd MD November 21, 2016 08:43
[2016-11-21] MEDS: PRIMIDONE 50 MG TAB PO SCH ×3 (09:00→18:19)
[2016-11-21] MEDS: SODIUM CHLORIDE 0.9% FLUSH 10 ML FLUSH SCH ×2 (09:00→21:09)
[2016-11-21] MEDS: lamoTRIgine 100 MG TAB PO SCH ×3 (09:00→18:19)
[2016-11-21] MEDS: SERTRALINE HCL 50 MG TAB PO SCH (09:00)
[2016-11-21] MEDS: SERTRALINE HCL 100 MG TAB PO SCH (09:00)
[2016-11-21] MEDS ORDERED: PROPOFOL 200 MG/20 ML AMP IV ONE (09:22)
[2016-11-21] MEDS ORDERED: NALOXONE HCL 0.4 MG/ML AMP IV PRN (09:45)
--- NOTE | 2016-11-21 09:49 | HHI.GIFU ---
Subjective Remarks Immediate postop note: EGD with biopsy Indication: GI bleed Findings: esophagus normal. Stomach: clean based pre pyloric ulcer. minimal gastritis. Biopsy taken. Duodenum: normal Impression: Healing gastric ulcer, appears benign. Gastritis. Biopsy taken for H Pylori. Rec: Protonix BID. Regular diet. Home later today or tomorrow if stable. Objective Vitals I&O Vital Signs Date Time Temp Pulse Resp B/P Pulse Ox O2 Delivery O2 Flow Rate FiO2 11/21/16 07:00 98.9 72 20 135/64 94 11/21/16 07:00 72 11/21/16 06:00 70 11/21/16 05:30 75 11/21/16 04:58 99.3 64 20 151/66 96 11/21/16 03:33 82 16 139/65 95 11/21/16 02:45 98.8 81 18 143/65 96 Room Air 11/21/16 02:35 98.8 79 16 113/59 95 Room Air 11/21/16 00:45 98.6 80 18 128/60 98 Room Air 11/21/16 00:15 98.8 82 18 136/62 98 Room Air 11/21/16 00:00 99.3 84 16 124/78 98 Room Air 11/20/16 23:47 76 16 129/69 95 Room Air 11/20/16 22:03 68 18 100/64 99 Room Air 11/20/16 20:53 18 11/20/16 19:40 99.5 74 14 107/51 100 Room Air I/O 11/20/16 11/20/16 11/20/16 11/21/16 11/21/16 11/21/16 07:00 15:00 23:00 07:00 15:00 23:00 Intake Total 1906 ml Balance 1906 ml Intake Oral 0 ml IV Total 1306 ml Packed Cells 250 ml Other 350 ml # Voids 1 # Bowel Movements 1 Laboratory Laboratory Tests Test 11/20/16 11/20/16 11/20/16 11/21/16 20:45 21:29 22:41 00:35 White Blood Count 7.3 Red Blood Count 2.91 Hemoglobin 9.2 Hematocrit 27.2 Mean Corpuscular Volume 93.4 Mean Corpuscular Hemoglobin 31.5 Mean Corpuscular Hemoglobin 33.8 Concent Red Cell Distribution Width 14.3 Platelet Count 214 Mean Platelet Volume 8.9 Neutrophils (%) (Auto) 84.4 Lymphocytes (%) (Auto) 8.3 Monocytes (%) (Auto) 6.6 Eosinophils (%) (Auto) 0.1 Basophils (%) (Auto) 0.6 Neutrophils # (Auto) 6.2 Lymphocytes # (Auto) 0.6 Monocytes # (Auto) 0.5 Eosinophils # (Auto) 0.0 Basophils # (Auto) 0.0 CBC Comment DIFF FINAL Differential Comment Prothrombin Time 12.4 Prothromb Time International 1.1 Ratio Activated Partial 24.0 Thromboplast Time Sodium Level 141 Potassium Level 4.5 Chloride Level 103 Carbon Dioxide Level 31.4 Anion Gap 7 Blood Urea Nitrogen 45 Creatinine 0.70 Estimat Glomerular Filtration 83 Rate Random Glucose 112 Calcium Level 7.9 Total Bilirubin 0.2 Aspartate Amino Transf 24 (AST/SGOT) Alanine Aminotransferase 23 (ALT/SGPT) Alkaline Phosphatase 100 Troponin I LESS THAN 0.02 Total Protein 5.7 Albumin 3.4 Blood Type O POSITIVE O POSITIVE Antibody Screen NEGATIVE Blood Bank Comment Crossmatch Leukocyte-Reduced Red Blood Cells Urine Color YELLOW Urine Turbidity HAZY Urine pH 6.0 Urine Specific [place] 1.047 Urine Protein TRACE Urine Glucose (UA) NEG Urine Ketones TRACE Urine Occult Blood LARGE Urine Nitrite NEG Urine Bilirubin NEG Urine Urobilinogen LESS THAN 2.0 Urine Leukocyte Esterase TRACE Urine RBC 4 Urine WBC 2 Urine Squamous Epithelial 4 Cells Urine Transitional Epithelial <1 Cells Urine Bacteria RARE Urine Mucus FEW Microscopic Urinalysis Comment CULT NOT INDICATED Test 11/21/16 01:00 Hemoglobin 8.6 Hematocrit 25.7 Physical Exam HEENT: Pupils round and reactive to light; normocephalic; atraumatic; no jaundice. Throat is clear. NECK: Neck is supple, no JVD, no lymphadenopathy. CHEST: Chest is clear to auscultation and percussion. CARDIAC: Regular rate and rhythm with no murmur gallop or rubs. ABDOMEN: Soft, nondistended, nontender; no hepatosplenomegaly; bowel sounds are present in all four quadrants. EXTREMITIES: No clubbing, cyanosis, or edema. SKIN: Normal; no rash; no jaundice. 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 Assessment and Plan Plan ASSESSMENT: - Upper GI Bleeding with hematemesis and melanotic stool. No hx PUD. (+) NSAID use- 2-4 ibuprofen per day. Woke up yesterday afternoon diaphoretic and had nausea/vomiting with reddish colored emesis and started passing black tarry stool- with red blood clots when she flushed the toilet. No hx of GI bleeding. Does have a hx of collagenous colitis, but has not had any issues with this for quite some time. Last colonoscopy was 2011, unsure who did this or what was found. No outpt records from our clinic. Protonix. - Anemia, secondary to acute blood loss. 8.6.7. - Hx collagenous colitis. No issues with this for several years. No diarrhea. Last colonoscopy 2011. - Sz D/O, per primary PLAN: EGD shows healing clean based ulcer. No intervention. Advance diet as tolerated. Home later today or tomorrow if stable. Juan David Osborn MD November 21, 2016 09:49
[2016-11-21] MEDS ORDERED: DO NOT ADM ANY ANTICOAGULANT DRUGS PRN (10:15)
[2016-11-21] MEDS ORDERED: PHENOL 1.4% SOLN 180 ML BTL OROPHARYNG PRN (10:30)
[2016-11-21 10:49] LABS: AUTOMATED NEUTROPHIL # 3.4 TH/MM3 (1.8-7.7); BASOPHIL % 0.5 % (0.0-2.0); EOSINOPHIL # 0.1 TH/MM3 (0-0.4); EOSINOPHIL % 1.1 % (0.0-4.0); HEMATOCRIT 34.8 % (35.0-46.0); HEMO FLAGS DIFF FINAL; LYMPH % 15.3 % (9.0-44.0); LYMPHOCYTE # 0.7 TH/MM3 (1.0-4.8); MEAN CELL VOLUME 91.2 FL (80.0-100.0); MEAN CORPUSCULAR HEMOGLOBIN 31.4 PG (27.0-34.0); MEAN CORPUSCULAR HGB CONC 34.4 % (32.0-36.0); MONO % 10.2 % (0.0-8.0); NEUT % 72.9 % (16.0-70.0); PLATELET COUNT 166 TH/MM3 (150-450); RED BLOOD COUNT 3.81 MIL/MM3 (4.00-5.30); RED CELL DISTRIBUTION WIDTH 15.1 % (11.6-17.2); WHITE BLOOD COUNT 4.7 TH/MM3 (4.0-11.0)
[2016-11-21 10:56] LABS: INTERNATIONAL NORMALIZED RATIO 1.1 RATIO; PROTHROMBIN TIME - PATIENT 12.1 SEC (9.8-11.6)
[2016-11-21 11:30] LABS: ALKALINE PHOSPHATASE 107 U/L (45-117); ALT (GPT) 19 U/L (10-53); ANION GAP 8 MEQ/L (5-15); AST (GOT) 23 U/L (15-37); BICARBONATE 29.4 MEQ/L (21.0-32.0); BLOOD UREA NITROGEN 20 MG/DL (7-18); CHLORIDE 106 MEQ/L (98-107); GLOMERULAR FILTRATION RATE 125 ML/MIN (>89); MAGNESIUM 2.3 MG/DL (1.5-2.5); POTASSIUM 4.3 MEQ/L (3.5-5.1); SODIUM (NA) 143 MEQ/L (136-145); TOTAL BILIRUBIN ADULT 0.3 MG/DL (0.2-1.0)
--- NOTE | 2016-11-21 12:42 | PD.TRANSFR ---
Transfer Summary Admission Date November 20, 2016 at 22:36 Transfer Date: November 21, 2016 Admitting Diagnosis GI bleed Diagnoses: (1) GI bleed Diagnosis: Principal (2) Seizure disorder Diagnosis: Principal (3) Anemia Diagnosis: Principal Significant Findings EGD - prepyloric ulcer nonbleeding well healing. H. pylori biopsy Transfer Summary/Subjective 71-year-old female. Admission with upper GI bleed secondary to gastric ulcer/ healing. Likely from NSAID use. Hemodynamically stable. No active bleeding. Objective Vital Signs Date Time Temp Pulse Resp B/P Pulse Ox O2 Delivery O2 Flow Rate FiO2 11/21/16 11:00 98.0 67 20 142/63 98 11/21/16 09:51 Room Air Result Diagram: 11/21/16 1011 11/21/16 1011 Imaging Last Impressions Chest X-Ray 11/20/16 0000 Signed Impressions: Service Date/Time: Sunday, November 20, 2016 21:05 - CONCLUSION: 1. No acute cardiopulmonary disease. Chris Flores MD Abdomen/Pelvis CT 11/20/16 0000 Signed Impressions: Service Date/Time: Sunday, November 20, 2016 22:04 - CONCLUSION: 1. No evidence of acute abdominal or pelvic process. No masses are identified. 2. Diverticulosis without evidence of diverticulitis. Chris Flores MD Objective Remarks GENERAL: 71-year-old female, critically ill currently resting in bed in no acute distress SKIN: Warm and dry. No rash HEAD: Status post right temporal craniectomy 1998 EYES: No scleral icterus. No injection or drainage. NECK: Supple, trachea midline. No JVD or lymphadenopathy. CARDIOVASCULAR: RRR. S1, S2 without murmur RESPIRATORY: Breath sounds equal bilaterally. No accessory muscle use. GASTROINTESTINAL: Abdomen soft, non-tender, nondistended. Hypoactive bowel sounds are appreciated MUSCULOSKELETAL: No significant peripheral edema. BACK: Nontender without obvious deformity. No CVA tenderness. NEURO: Cranial nerves II through XII grossly intact. Strength is equal and symmetric. Normal sensation. A/P Assessment and Plan Neuro/Psych: Seizure disorder NOS History of right temporal lobectomy 1998 Anxiety disorder NOS Continue Lamictal 100 mg by mouth 3 times a day and Mysoline 50 mg by mouth 3 times a day for seizure disorder Continue sertraline 150 mg by mouth daily for depression/anxiety Morphine for pain management Avoid NSAIDs Avoid Ultram with seizure disorder Seizure precautions CV: History dyslipidemia Patient is currently hemodynamically stable not requiring antihypertensive and or vasopressors Currently on normal saline at 124 cc an hour Currently not on any lipid-lowering agents Resp: Nasal cannula to maintain saturations greater than equal to 92% Incentive spirometry while awake GI: Likely upper GI bleed with NSAID use History collagenous colitis History of IBS Currently Protonix 40 mg IV twice a day 4 EGD now : Soto if indicated for accurate I's and O's in a critically ill patient Endo: Sliding-scale insulin if indicated Renal: Prerenal azotemia Elevated BUN likely secondary to upper GI bleed. Heme: Acute blood loss anemia Serial hemoglobins. Every 6 hours Transfuse as clinically indicated ID: Monitor for infection FEN: Replace electrolytes as clinically indicated MSK: Osteoporosis Holding polia 60 mg IM every 180 days Access - Utilize peripheral IV. Central line if indicated Prophylaxis - GI - Protonix - DVT - SCD/pharmacological prophylaxis contraindicated with bleeding Critical Care: The total critical care time was 35 minutes. Time to perform other separately billable procedures was not included in the critical care time. GI ble ed - No history of liver disease - Most probably peptic ulcer due to NSAIDs overuse - IV Protonix every 12 - GI consult - Series of H&H Seizure disorder - Lamictal - Primidone Anemia - Due to above - Series of H&H - Transfuse for hemoglobin less than 7 Anxiety - Zoloft DVT GI prophylaxis - No pharmacological DVT prophylaxis due to active GI bleed - Teds SCDs - Protonix IV twice a day Critical Care: The total critical care time was 35 minutes. Time to perform other separately billable procedures was not included in the critical care time. Theodore Lloyd MD November 21, 2016 12:42
--- NOTE | 2016-11-21 14:23 | PD.CONS ---
[facility] Service [facility] Service Attending: Dr. Bosch R3: Dr. Tompkins Consult Requested By Dr. Lloyd Reason for Consult Transfer from [facility] Primary Care Physician Isela Patel MD History of Present Illness Patient is a 71-year-old female admitted to ICU for GI bleed on . Her PCP is Dr. Patel. Last seen in our Clinic November 2015. Presented 11/20/16 due to nausea, vomiting, bloody emesis and passing bright red blood per rectum. She says that afternoon of admission, she vomited several times and there was blood in the vomit. She then had two episodes of diarrhea at home. The first was black and tarry, the second contained blood clots. She had another bloody bowel movement in the waiting room of ER. She says she had some pain to her abdomen, in the epigastric area as well as the right lower quadrant. She had been taking a lot of Ibuprofen lately for toothaches. She has no history of liver disease. This morning, 11/21, there has been no more blood per rectum since admission. She is hemodynamically stable. Afebrile. No abdominal pain. Last received morphine at 5am today. She says she feels touch improved, but not back to normal. She requested pain medication this afternoon and was given both morphine and Edmond. She states that she cannot eat the food that was given at lunch today, since she does not have teeth, she needs a soft diet and she is also lactose intolerant. Has not yet been up out of bed since admission, but would like to get up out of bed with assistance. Review of Systems Constitutional: DENIES: Fever, Chills, Change in appetite Respiratory: DENIES: Wheezing, Shortness of breath Cardiovascular: DENIES: Chest pain, Lower Extremity Edema Gastrointestinal: COMPLAINS OF: Abdominal pain, Bloody stools, Nausea, Vomiting Genitourinary: DENIES: Urgency, Dysuria Musculoskeletal: DENIES: Joint pain, Muscle aches, Back pain Integumentary: DENIES: Rash Neurologic: COMPLAINS OF: Headache Past Family Social History Past Medical History PMH: OA, Seizure D/O, IBS. Seizure disorder managed by her neurologist who also does medication levels. FH: no Fhx of heart disease or DM, no fhx of cancers. PSH: Right temporal lobectomy (1998), tonsillectomy as child Social: Works as institution librarian. Stopped smoking over 20 years, unsure how much she previous smoked. Denied alcohol use. Health Maintenance: PAP/Mammogram up-to-date (sees PRIMARY SUBSTANCE ABUSE COUNSELOR - Dr. Matute) Colonoscopy in past - 2011 Allergies: Coded Allergies: Tegretol (Verified Allergy, Severe, 11/20/16) Adhesives (Verified Allergy, Mild, 11/20/16) Physical Exam Vital Signs Vital Signs Date Time Temp Pulse Resp B/P Pulse Ox O2 Delivery O2 Flow Rate FiO2 11/21/16 11:00 98.0 67 20 142/63 98 11/21/16 10:29 98.5 123 20 152/86 100 11/21/16 10:14 98.0 98 20 143/86 99 11/21/16 10:00 72 11/21/16 09:59 97.8 119 18 143/80 99 11/21/16 09:51 74 12 121/56 97 Room Air 11/21/16 09:44 98.9 109 20 148/90 99 11/21/16 09:40 74 12 126/60 98 Room Air 11/21/16 09:30 97.5 92 12 151/69 100 Room Air 11/21/16 08:00 72 11/21/16 07:22 92 21 11/21/16 07:00 98.9 72 20 135/64 94 11/21/16 07:00 72 11/21/16 06:00 70 11/21/16 05:30 75 11/21/16 04:58 99.3 64 20 151/66 96 11/21/16 03:33 82 16 139/65 95 11/21/16 02:45 98.8 81 18 143/65 96 Room Air 11/21/16 02:35 98.8 79 16 113/59 95 Room Air 11/21/16 00:45 98.6 80 18 128/60 98 Room Air 11/21/16 00:15 98.8 82 18 136/62 98 Room Air 11/21/16 00:00 99.3 84 16 124/78 98 Room Air 11/20/16 23:47 76 16 129/69 95 Room Air 11/20/16 22:03 68 18 100/64 99 Room Air 11/20/16 20:53 18 11/20/16 19:40 99.5 74 14 107/51 100 Room Air Physical Exam GENERAL: 71-year-old female, resting in bed in no acute distress. Appears well. SKIN: Warm and dry. No rashes EYES: No scleral icterus. No injection or drainage. NECK: Supple, trachea midline. CARDIOVASCULAR: RRR without murmurs RESPIRATORY: Breath sounds equal bilaterally. CTAB, no w/r/c. No accessory muscle use. GASTROINTESTINAL: Normoactive BS. Abdomen soft, nondistended, mild tenderness in the epigastric region. MUSCULOSKELETAL: No significant peripheral edema. BACK: No obvious deformity. NEURO: Cranial nerves II through XII grossly intact. Normal speech. Laboratory Laboratory Tests Test 11/20/16 11/20/16 11/20/16 11/21/16 20:45 21:29 22:41 00:35 White Blood Count 7.3 Red Blood Count 2.91 Hemoglobin 9.2 Hematocrit 27.2 Mean Corpuscular Volume 93.4 Mean Corpuscular Hemoglobin 31.5 Mean Corpuscular Hemoglobin 33.8 Concent Red Cell Distribution Width 14.3 Platelet Count 214 Mean Platelet Volume 8.9 Neutrophils (%) (Auto) 84.4 Lymphocytes (%) (Auto) 8.3 Monocytes (%) (Auto) 6.6 Eosinophils (%) (Auto) 0.1 Basophils (%) (Auto) 0.6 Neutrophils # (Auto) 6.2 Lymphocytes # (Auto) 0.6 Monocytes # (Auto) 0.5 Eosinophils # (Auto) 0.0 Basophils # (Auto) 0.0 CBC Comment DIFF FINAL Differential Comment Prothrombin Time 12.4 Prothromb Time International 1.1 Ratio Activated Partial 24.0 Thromboplast Time Sodium Level 141 Potassium Level 4.5 Chloride Level 103 Carbon Dioxide Level 31.4 Anion Gap 7 Blood Urea Nitrogen 45 Creatinine 0.70 Estimat Glomerular Filtration 83 Rate Random Glucose 112 Calcium Level 7.9 Total Bilirubin 0.2 Aspartate Amino Transf 24 (AST/SGOT) Alanine Aminotransferase 23 (ALT/SGPT) Alkaline Phosphatase 100 Troponin I LESS THAN 0.02 Total Protein 5.7 Albumin 3.4 Blood Type O POSITIVE O POSITIVE Antibody Screen NEGATIVE Blood Bank Comment Crossmatch Leukocyte-Reduced Red Blood Cells Urine Color YELLOW Urine Turbidity HAZY Urine pH 6.0 Urine Specific [place] 1.047 Urine Protein TRACE Urine Glucose (UA) NEG Urine Ketones TRACE Urine Occult Blood LARGE Urine Nitrite NEG Urine Bilirubin NEG Urine Urobilinogen LESS THAN 2.0 Urine Leukocyte Esterase TRACE Urine RBC 4 Urine WBC 2 Urine Squamous Epithelial 4 Cells Urine Transitional Epithelial <1 Cells Urine Bacteria RARE Urine Mucus FEW Microscopic Urinalysis Comment CULT NOT INDICATED Test 11/21/16 11/21/16 11/21/16 01:00 06:00 10:11 Hemoglobin 8.6 12.0 Hematocrit 25.7 34.8 Nasal Screen MRSA (PCR) MRSA NOT DETECTED White Blood Count 4.7 Red Blood Count 3.81 Mean Corpuscular Volume 91.2 Mean Corpuscular Hemoglobin 31.4 Mean Corpuscular Hemoglobin 34.4 Concent Red Cell Distribution Width 15.1 Platelet Count 166 Mean Platelet Volume 8.8 Neutrophils (%) (Auto) 72.9 Lymphocytes (%) (Auto) 15.3 Monocytes (%) (Auto) 10.2 Eosinophils (%) (Auto) 1.1 Basophils (%) (Auto) 0.5 Neutrophils # (Auto) 3.4 Lymphocytes # (Auto) 0.7 Monocytes # (Auto) 0.5 Eosinophils # (Auto) 0.1 Basophils # (Auto) 0.0 CBC Comment DIFF FINAL Differential Comment Prothrombin Time 12.1 Prothromb Time International 1.1 Ratio Sodium Level 143 Potassium Level 4.3 Chloride Level 106 Carbon Dioxide Level 29.4 Anion Gap 8 Blood Urea Nitrogen 20 Creatinine 0.49 Estimat Glomerular Filtration 125 Rate Random Glucose 109 Calcium Level 7.5 Phosphorus Level 2.1 Magnesium Level 2.3 Total Bilirubin 0.3 Aspartate Amino Transf 23 (AST/SGOT) Alanine Aminotransferase 19 (ALT/SGPT) Alkaline Phosphatase 107 Total Protein 5.8 Albumin 3.4 Result Diagram: 11/21/16 1011 11/21/16 1011 Imaging Last Impressions Chest X-Ray 11/20/16 0000 Signed Impressions: Service Date/Time: Sunday, November 20, 2016 21:05 - CONCLUSION: 1. No acute cardiopulmonary disease. Chris Flores MD Abdomen/Pelvis CT 11/20/16 0000 Signed Impressions: Service Date/Time: Sunday, November 20, 2016 22:04 - CONCLUSION: 1. No evidence of acute abdominal or pelvic process. No masses are identified. 2. Diverticulosis without evidence of diverticulitis. Chris Flores MD Assessment and Plan Assessment and Plan 71-year-old female admitted to ICU under radio station audio engineer service on 11/20/16 with upper GI bleed secondary to gastric ulcer that is healing and likely from NSAID use. Now hemodynamically stable with no active bleeding. Code Status Full Discussed Condition With NATHALIE Tompkins Problem List: (1) GI bleed Status: Acute Plan: Upper GI Bleeding with hematemesis and melanotic stool on admission. No hx PUD or hx of GI bleeding. Woke up yesterday afternoon with nausea/vomiting with bloody emesis and started passing black tarry stool with red blood clots. Does have a hx of collagenous colitis, but has not had any issues with this for quite some time. History of IBS. Recent heavy NSAID use- 2-4 ibuprofen per day for tooth pain. Last colonoscopy was 2011, unsure who did this or what was found. Plan: * GI was consulted * EGD 11/21 showed prepyloric ulcer nonbleeding well healing. GI recommendations , " No intervention. Advance diet as tolerated. Home later today or tomorrow if stable." GI has signed off. * Protonix 40mg IV q12hr, transition to PO Protonix tomorrow 40mg PO daily * Avoid NSAIDs with current ulcer * H. pylori biopsy pending * Biopsy from EGD pending * Edmond PRN pain, Morphine for breakthrough pain (2) Anemia Status: Resolved Plan: Hg on admission was 9.2 11/20 ->8.6, now at 12.0 on 11/21/16. No signs of active bleeding. Plan: * Continue to monitor with H & H q4hr today * Transfuse if hemoglobin less than 7 * CBC tomorrow am (3) Seizure disorder Status: Chronic Plan: History of right temporal lobectomy 1998 Plan: * Continue Lamictal 100 mg by mouth 3 times a day * Continue Mysoline 50 mg by mouth 3 times a day * Avoid Ultram with seizure disorder * Seizure precautions (4) Anxiety and depression Status: Chronic Plan: Plan: * Continue sertraline 150 mg by mouth daily (5) Osteoporosis Status: Chronic Plan: Plan: * Holding Prolia 60 mg IM every 180 days (6) Nutrition, metabolism, and development symptoms Status: Acute Plan: Plan: * NS: Decrease from 124cc/hr to 42cc/hr, as patient is now tolerating PO. * Electrolytes normal, continue to monitor * Heart Healthy Diet, soft and lactose free (7) Deep vein thrombosis (DVT) prophylaxis prescribed at discharge Status: Acute Plan: Plan: * SCDs, pharmacological prophylaxis contraindicated with bleeding Problem Qualifiers (1) GI bleed: Qualified Code: K92.2 - Gastrointestinal hemorrhage, unspecified gastrointestinal hemorrhage type Libby Abarca MD November 21, 2016 14:23
[2016-11-21] MEDS ORDERED: ACETAMINOPHEN/HYDROcodone 325 MG/5 MG TAB PO PRN (14:45)
--- NOTE | 2016-11-21 14:52 | EKG ---
Date Performed: 11/20/2016 Time Performed: 20:54:36 PTAGE: 71 years EKG: Sinus rhythm NONSPECIFIC T-WAVE ABNORMALITY T-wave changes are more prominent since prior tracing, otherwise larg jennifer unchanged BORDERLINE ECG PREVIOUS TRACING : 09/06/2011 11.48 DOCTOR: Pablo Gimenez Interpretating Date/Time 11/21/2016 14:51:13
[2016-11-21] MEDS: ACETAMINOPHEN/HYDROcodone 325 MG/5 MG TAB PO PRN (15:10)
[2016-11-22] VITALS (8 sets, daily range): BP systolic 124–146; BP diastolic 58–68; PULSE 58–72; RESP 14–18; TEMP 96.5–98.5; O2SAT 94–97
[2016-11-22] MEDS: ACETAMINOPHEN/HYDROcodone 325 MG/5 MG TAB PO PRN ×2 (00:19→06:46)
[2016-11-22] MEDS: CHLORHEXIDINE GLUCONATE 2 % 1 PACK (2 CLOTHS) TOP SCH (04:00)
--- NOTE | 2016-11-22 06:16 | MR ---
cc: JUAN DAVID OSBORN JAN MD DATE 11/21/2016 PROCEDURE Esophagogastroduodenoscopy with biopsy. INDICATIONS Upper GI bleed. REFERRING PHYSICIAN Dr. Jasmeet Preston PROCEDURE After informed consent was obtained, the patient was taken to the operating room where she was turned onto her left side and given sedation with propofol. After adequate sedation was achieved, the Olympus video gastroscope was inserted in the oropharynx and advanced to the esophagus, stomach and duodenum. It was then slowly withdrawn, examining the mucosal surfaces carefully. The duodenum was examined two or three times and no blood or ulcerations were seen there. The scope was withdrawn back into the antrum. There was no blood in any part of the stomach. There was a clean-based ulcer in the prepyloric area at approximately 10 o'clock relative to the pylorus. Two biopsies were obtained from the gastric antrum to evaluate for mild gastritis. There a retroflex exam was performed. The scope was then straightened and pulled through the esophagus, then the procedure was terminated. She tolerated the procedure well and was returned to the recovery area in good condition. FINDINGS 1. The esophagus was normal. No evidence of varices. 2. The stomach was clean, without any blood there. There was a relatively small, clean-based ulcer in the prepyloric area and some mild gastritis. Biopsies were obtained to rule out H. Pylori. 3. The duodenum was normal. IMPRESSION Upper GI bleed with gastric ulcer, healing. No visible vessel and very low risk for re-bleeding. RECOMMENDATIONS 1. The patient may start a heart-healthy diet at noon. 2. Continue IV fluid. 3. If she remains stable later today or tomorrow, she may be discharged home. Juan David Osborn MD HHS/SSB /10:16 AM /6:09 AM
--- NOTE | 2016-11-22 08:12 | HHI.FPPN ---
Subjective Remarks No acute events overnight. Vital signs have remained stable. Repeat labs are pending this AM. Patient states she overall feels better but endorses she has not ambulated since being in the hospital. She is typically independent at home. Denies abdominal pain, blood in stool, nausea, vomiting, or calf pain. ( Alphonso Tompkins MD R3) Objective Vitals Vital Signs Date Time Temp Pulse Resp B/P Pulse Ox O2 Delivery O2 Flow Rate FiO2 11/22/16 06:27 96.9 66 16 124/66 97 11/22/16 04:00 98.0 58 18 124/58 96 11/22/16 04:00 72 11/22/16 02:00 66 11/22/16 00:00 72 11/22/16 00:00 98.5 67 14 146/68 94 11/21/16 23:00 72 11/21/16 23:00 62 11/21/16 23:00 98.5 67 14 146/68 94 11/21/16 22:30 21 11/21/16 22:05 94 21 11/21/16 22:00 76 11/21/16 20:00 72 11/21/16 20:00 98.5 72 24 167/77 94 11/21/16 18:00 72 11/21/16 16:10 20 11/21/16 16:00 74 11/21/16 15:00 98.3 67 20 130/61 98 11/21/16 15:00 67 11/21/16 14:50 20 11/21/16 14:00 74 11/21/16 14:00 72 11/21/16 12:00 74 11/21/16 11:00 98.0 67 20 142/63 98 11/21/16 10:29 98.5 123 20 152/86 100 11/21/16 10:14 98.0 98 20 143/86 99 11/21/16 10:00 72 11/21/16 09:59 97.8 119 18 143/80 99 11/21/16 09:51 74 12 121/56 97 Room Air 11/21/16 09:44 98.9 109 20 148/90 99 11/21/16 09:40 74 12 126/60 98 Room Air 11/21/16 09:30 97.5 92 12 151/69 100 Room Air I/O 11/21/16 11/21/16 11/21/16 11/22/16 11/22/16 11/22/16 06:59 14:59 22:59 06:59 14:59 22:59 Intake Total 1906 ml 1340 ml 576 ml 494 ml Output Total 0 ml 550 ml 350 ml Balance 1906 ml 1340 ml 26 ml 144 ml Intake Oral 0 ml 240 ml 240 ml 200 ml IV Total 1306 ml 1000 ml 336 ml 294 ml Packed Cells 250 ml Other 350 ml 100 ml Output Urine Total 0 ml 550 ml 350 ml Stool Total 0 ml 0 ml Estimated Blood Loss 0 ml Other 0 ml # Voids 1 3 1 (Alphonso Tompkins MD R3) Result Diagram: 11/21/16 1011 11/21/16 1011 Objective Remarks GENERAL: 71-year-old female, resting in bed in no acute distress. Appears well, sitting up in bed. SKIN: Warm and dry. No rashes EYES: No scleral icterus. No injection or drainage. NECK: Supple, trachea midline. CARDIOVASCULAR: RRR without murmurs RESPIRATORY: Breath sounds equal bilaterally. CTAB, no w/r/c. No accessory muscle use. GASTROINTESTINAL: Normoactive BS. Abdomen soft, nondistended, NTTP. MUSCULOSKELETAL: No significant peripheral edema. BACK: No obvious deformity. NEURO: Cranial nerves II through XII grossly intact. Normal speech. (Alphonso Tmopkins MD R3) A/P Assessment and Plan 71-year-old female admitted to ICU under legal service specialist service on 11/20/16 with upper GI bleed secondary to gastric ulcer that is healing and likely from NSAID use. Now s/p endoscopy with no active bleeding. Discharge Planning Pending AM labs and eval by PT, anticipate D/C to home today. (Alphonso Tompkins MD R3) Attending Attestation Patient seen and examined. Case reviewed and discussed with the resident team. Agree with plan of care as discussed with me and documented in the resident note. (Katrin Bosch MD) Problem List: (1) GI bleed Status: Acute Plan: Upper GI Bleeding with hematemesis and melanotic stool on admission. No hx PUD or hx of GI bleeding. Woke up 11/20 afternoon with nausea/vomiting with bloody emesis and started passing black tarry stool with red blood clots. Does have a hx of collagenous colitis, but has not had any issues with this for quite some time. History of IBS. Recent heavy NSAID use- 2-4 ibuprofen per day for tooth pain. Last colonoscopy was 2011, unsure who did this or what was found. Plan: * GI following, s/p panendoscopy w/ post-op findings of antral ulcer and gastritis * Prepyloric ulcer was nonbleeding and well healing. * Per GI 11/21: " No intervention. Advance diet as tolerated. Home later today or tomorrow if stable." * H&H this am pending. Hgb yesterday 12.0 up from 8.6. * Protonix 40mg PO daily * Avoid NSAIDs with current ulcer * H. pylori biopsy pending * Biopsy from EGD pending * Harrold PRN pain, Morphine for breakthrough pain (2) Anemia Status: Resolved Plan: Hg on admission was 9.2 11/20 ->8.6, now at 12.0 on 11/21/16. No signs of active bleeding. Plan: * H&H pending * Transfuse if hemoglobin less than 7 (3) Seizure disorder Status: Chronic Plan: History of right temporal lobectomy 1998 Plan: * Continue Lamictal 100 mg by mouth 3 times a day * Continue Mysoline 50 mg by mouth 3 times a day * Avoid Ultram with seizure disorder * Seizure precautions (4) Anxiety and depression Status: Chronic Plan: Plan: * Continue sertraline 150 mg by mouth daily (5) Osteoporosis Status: Chronic Plan: Plan: * Holding Prolia 60 mg IM every 180 days (6) Nutrition, metabolism, and development symptoms Status: Acute Plan: Plan: * HLIV. * Electrolytes normal, continue to monitor * Heart Healthy Diet, soft and lactose free (7) Deep vein thrombosis (DVT) prophylaxis prescribed at discharge Status: Acute Plan: Plan: * SCDs, pharmacological prophylaxis contraindicated with bleeding (Alphonso Tompkins MD R3) Problem List: (1) GI bleed Status: Acute Plan: Upper GI Bleeding with hematemesis and melanotic stool on admission. No hx PUD or hx of GI bleeding. Woke up 11/20 afternoon with nausea/vomiting with bloody emesis and started passing black tarry stool with red blood clots. Does have a hx of collagenous colitis, but has not had any issues with this for quite some time. History of IBS. Recent heavy NSAID use- 2-4 ibuprofen per day for tooth pain. Last colonoscopy was 2011, unsure who did this or what was found. Plan: * GI following, s/p panendoscopy w/ post-op findings of antral ulcer and gastritis * Prepyloric ulcer was nonbleeding and well healing. * Per GI 11/21: " No intervention. Advance diet as tolerated. Home later today or tomorrow if stable." * H&H this am pending. Hgb yesterday 12.0 up from 8.6. * Protonix 40mg PO daily * Avoid NSAIDs with current ulcer * H. pylori biopsy pending * Biopsy from EGD pending * Harrold PRN pain, Morphine for breakthrough pain (2) Anemia Status: Resolved Plan: Hg on admission was 9.2 11/20 ->8.6, now at 12.0 on 11/21/16. No signs of active bleeding. Plan: * H&H pending * Transfuse if hemoglobin less than 7 (3) Seizure disorder Status: Chronic Plan: History of right temporal lobectomy 1998 Plan: * Continue Lamictal 100 mg by mouth 3 times a day * Continue Mysoline 50 mg by mouth 3 times a day * Avoid Ultram with seizure disorder * Seizure precautions (4) Anxiety and depression Status: Chronic Plan: Plan: * Continue sertraline 150 mg by mouth daily (5) Osteoporosis Status: Chronic Plan: Plan: * Holding Prolia 60 mg IM every 180 days (6) Nutrition, metabolism, and development symptoms Status: Acute Plan: Plan: * HLIV. * Electrolytes normal, continue to monitor * Heart Healthy Diet, soft and lactose free (7) Deep vein thrombosis (DVT) prophylaxis prescribed at discharge Status: Acute Plan: Plan: * SCDs, pharmacological prophylaxis contraindicated with bleeding (Katrin Bosch MD) Problem Qualifiers (1) GI bleed: Qualified Code: K92.2 - Gastrointestinal hemorrhage, unspecified gastrointestinal hemorrhage type (2) Anemia: Qualified Code: D64.9 - Anemia, unspecified type Alphonso Tompkins MD R3 November 22, 2016 08:11 Katrin Bosch MD November 25, 2016 12:13
[2016-11-22] MEDS ORDERED: PANT40TA3 PO (08:13)
--- NOTE | 2016-11-22 08:14 | HHI.DCPOC ---
Discharge Care Plan Diagnosis: (1) GI bleed Goals to Promote Your Health * To prevent worsening of your condition and complications * To maintain your health at the optimal level Directions to Meet Your Goals Take your medications as prescribed Follow your dietary instruction Follow activity as directed Keep your appointments as scheduled Take your immunizations and boosters as scheduled If your symptoms worsen call your PCP, if no PCP go to Urgent Care Center or Emergency Room Smoking is Dangerous to Your Health. Avoid second hand smoke Call the 24-hour hour crisis hotline for domestic abuse at Alphonso Tompkins MD R3 November 22, 2016 08:14
[2016-11-22] MEDS: SERTRALINE HCL 50 MG TAB PO SCH (08:55)
[2016-11-22] MEDS: SERTRALINE HCL 100 MG TAB PO SCH (08:55)
[2016-11-22] MEDS: lamoTRIgine 100 MG TAB PO SCH ×2 (08:55→14:04)
[2016-11-22] MEDS: PRIMIDONE 250 MG TAB PO SCH ×2 (08:56→14:07)
[2016-11-22] MEDS: SODIUM CHLORIDE 0.9% FLUSH 10 ML FLUSH SCH (08:59)
[2016-11-22] MEDS ORDERED: PANTOPRAZOLE SOD 40 MG DELAYED RELEASE TAB PO SCH (09:00)
[2016-11-22 11:59] LABS: HEMATOCRIT 34.9 % (35.0-46.0); REVIEW FLAG FINAL
--- NOTE | 2016-11-22 15:15 | HHI.GIFU ---
Subjective Remarks Resting in bed. No active bleeding. Tolerating diet. No n/v, no abdominal pain. Brown bowel movement today. Objective Vitals I&O Vital Signs Date Time Temp Pulse Resp B/P Pulse Ox O2 Delivery O2 Flow Rate FiO2 11/22/16 11:00 97.3 69 15 138/65 96 11/22/16 08:24 97 21 11/22/16 07:00 96.5 64 15 135/64 95 11/22/16 06:27 96.9 66 16 124/66 97 11/22/16 04:00 98.0 58 18 124/58 96 11/22/16 04:00 72 11/22/16 02:00 66 11/22/16 00:00 72 11/22/16 00:00 98.5 67 14 146/68 94 11/21/16 23:00 72 11/21/16 23:00 62 11/21/16 23:00 98.5 67 14 146/68 94 11/21/16 22:30 21 11/21/16 22:05 94 21 11/21/16 22:00 76 11/21/16 20:00 72 11/21/16 20:00 98.5 72 24 167/77 94 11/21/16 18:00 72 11/21/16 16:10 20 11/21/16 16:00 74 I/O 11/21/16 11/21/16 11/21/16 11/22/16 11/22/16 11/22/16 07:00 15:00 23:00 07:00 15:00 23:00 Intake Total 1906 ml 1340 ml 576 ml 494 ml 306 ml Output Total 0 ml 550 ml 350 ml Balance 1906 ml 1340 ml 26 ml 144 ml 306 ml Intake Oral 0 ml 240 ml 240 ml 200 ml IV Total 1306 ml 1000 ml 336 ml 294 ml 306 ml Packed Cells 250 ml Other 350 ml 100 ml Output Urine Total 0 ml 550 ml 350 ml Stool Total 0 ml 0 ml Estimated Blood Loss 0 ml Other 0 ml # Voids 1 3 1 Laboratory Laboratory Tests Test 11/22/16 11:34 Hemoglobin 11.4 Hematocrit 34.9 Imaging Last Impressions Chest X-Ray 11/20/16 0000 Signed Impressions: Service Date/Time: Sunday, November 20, 2016 21:05 - CONCLUSION: 1. No acute cardiopulmonary disease. Chris Flores MD Abdomen/Pelvis CT 11/20/16 0000 Signed Impressions: Service Date/Time: Sunday, November 20, 2016 22:04 - CONCLUSION: 1. No evidence of acute abdominal or pelvic process. No masses are identified. 2. Diverticulosis without evidence of diverticulitis. Chris Flores MD Physical Exam HEENT: Normocephalic; atraumatic; no jaundice. CHEST: CTA CARDIAC: RRR ABDOMEN: Soft, nondistended, nontender; no hepatosplenomegaly; bowel sounds are present in all four quadrants. EXTREMITIES: No clubbing, cyanosis, or edema. SKIN: Normal; no rash; no jaundice. SENIOR VALIDATION ENGINEER: No focal deficits; alert and oriented times three. Assessment and Plan Plan ASSESSMENT: - Upper GI Bleeding with hematemesis and melanotic stool. No hx PUD. (+) NSAID use- 2-4 ibuprofen per day. Woke up yesterday afternoon diaphoretic and had nausea/vomiting with reddish colored emesis and started passing black tarry stool- with red blood clots when she flushed the toilet. No hx of GI bleeding. Does have a hx of collagenous colitis, but has not had any issues with this for quite some time. Last colonoscopy was 2011, unsure who did this or what was found. S/P EGD ()----> healing gastric ulcer, gastritis. Pathology pending. PPI. No further bleeding. Tolerating diet. HH 11.4/34.9. - Anemia, secondary to acute blood loss. HH 11.4/34.9. - Hx collagenous colitis. No issues with this for several years. No diarrhea. Last colonoscopy 2011. - Sz D/O, per primary PLAN: - PHOEBE - Await pathology - PPI - FU NIKOLAS 2 weeks - Okay to d/c home from GI standpoint - GI will sign off, please reconsult as needed - Pt seen and examined by Dr. Osborn and myself and this note is written on his behalf Savanna Cobb November 22, 2016 15:15
[2016-11-22] MEDS ORDERED: ACET500T3 PO (16:16)
[2016-12-05] MEDS ORDERED: PROT40TA PO (11:23)
[2016-12-27] MEDS ORDERED: SERT-129 PO (09:34)
[2016-12-27] MEDS ORDERED: SERT-132 PO (09:34)
== END 2016-11-22 18:14 | disposition home or self-care (01) | DRG 378 ==
LOC: NEPE 19:38 → NEDA 22:36 → HIMN 11-21 04:40 → HOCA 11-22 06:07
PROVIDERS: ADMIT Internal Medicine Critical Care Medicine; ATTEND Internal Medicine Critical Care Medicine
PROC: 30233N1 Transfusion of Nonautologous Red Blood Cells into Peripheral Vein, Percutaneous Approach (ICD-10-PCS; 2016-11-20)
PROC: 0DB68ZX Excision of Stomach, Via Natural or Artificial Opening Endoscopic, Diagnostic (ICD-10-PCS; principal; 2016-11-21 09:10)
DX: K25.4 Chronic or unspecified gastric ulcer with hemorrhage (principal); D62 Acute posthemorrhagic anemia; G40.909 Epilepsy, unspecified, not intractable, without status epilepticus; E78.5 Hyperlipidemia, unspecified; F41.9 Anxiety disorder, unspecified; K29.70 Gastritis, unspecified, without bleeding; G47.00 Insomnia, unspecified; R79.89 Other specified abnormal findings of blood chemistry; M81.0 Age-related osteoporosis without current pathological fracture; M19.90 Unspecified osteoarthritis, unspecified site; Z87.891 Personal history of nicotine dependence
CPT/HCPCS: 36430; 71010; 74177; 80053; 81001; 83735; 84100; 84484; 85014; 85018; 85025; 85610; 85730; 86850; 86900; 86901; 86920; 87641; 88305; 88312; 93005; 94150; 96365; 96366; 96375; 96376; C9113; J2270; J2354; J2405; J7030; J7040; J7050; P9016; Q9967

== ENCOUNTER → 2016-12-05 | Outpatient (CLI) | payer MEDICARE ==
[~2016-12-05] MED LIST changes: +ACET500T3 PO; +DENO60P SQ; +PANT40TA3 PO; +PROT40TA PO; -SIMV40TA PO
[2016-12-05 12:07] LABS: AUTOMATED NEUTROPHIL # 2.9 TH/MM3 (1.8-7.7); BASOPHIL % 0.6 % (0.0-2.0); EOSINOPHIL % 0.6 % (0.0-4.0); HEMATOCRIT 34.9 % (35.0-46.0); HEMO FLAGS DIFF FINAL; LYMPHOCYTE # 0.7 TH/MM3 (1.0-4.8); MEAN CELL VOLUME 95.7 FL (80.0-100.0); MEAN CORPUSCULAR HEMOGLOBIN 30.7 PG (27.0-34.0); MEAN CORPUSCULAR HGB CONC 32.1 % (32.0-36.0); MONO % 12.2 % (0.0-8.0); NEUT % 70.6 % (16.0-70.0); PLATELET COUNT 315 TH/MM3 (150-450); RED BLOOD COUNT 3.64 MIL/MM3 (4.00-5.30); RED CELL DISTRIBUTION WIDTH 15.7 % (11.6-17.2); WHITE BLOOD COUNT 4.1 TH/MM3 (4.0-11.0)
== END ==
LOC: CLAB 11:49
PROVIDERS: ATTEND Family Medicine
DX: K92.2 Gastrointestinal hemorrhage, unspecified (principal)
CPT/HCPCS: 36415; 85025